=== PATIENT | female | born 1995 | race Caucasian/White ===

== ENCOUNTER 2017-03-15 21:32 | Emergency (ER) | payer MEDICAID ==
[~2017-03-15] VITALS: Ht 157.5 cm; Wt 99.7 kg
[~2017-03-15 21:32] MED LIST: FLO0.4C PO; KETO10TA2 PO; NO HOME MEDS; ONDA4TAB9 PO; OXYC-150 PO; RANI-366 PO
[2017-03-15 22:24] LABS: CLARITY,URINE CLOUDY (Clear); COLOR,URINE YELLOW (Yellow); GLUCOSE, URINE NEGATIVE (Neg); KETONES,URINE TRACE mg/dl (Neg); LEUKOCYTE ESTERASE ,URINE TRACE (Neg); NITRITES, URINE NEGATIVE (Neg); OCCULT BLOOD,URINE LARGE (Neg); PROTEIN,URINE 100 mg/dl (Neg); UROBILINOGEN,URINE 0.2 E.U/dL (0.2-1.0)
[2017-03-15 22:25] LABS: URINE HCG NEGATIVE (NEG)
[2017-03-15 22:29] LABS: UA COLLECTION TYPE CLN CATCH MIDSTREAM
[2017-03-15 22:30] LABS: MUCUS STRANDS MANY /LPF (Neg); RBC,URINE TNTC /HPF (0-2)
[2017-03-15 22:31] LABS: BACTERIA,URINE 2+ /HPF (Neg); SQUAMOUS EPITHELIAL CELL,UR MANY /LPF (FEW)
[2017-03-15] MEDS ORDERED: morphine 2 MG/ML inj. syringe IV ONE (22:35)
[2017-03-15] MEDS ORDERED: cefazolin 1gm/NS 100mL 100 ML IV ONE (22:35)
[2017-03-15] MEDS ORDERED: LORazepam 2 mg/ml vial IV ONE (22:35)
[2017-03-15] MEDS ORDERED: normal saline 1000ML IV soln IVB ONE (22:35)
[2017-03-15] MEDS ORDERED: morphine 4 MG/ML inj SYRINge IV ONE (23:20)
[2017-03-15] MEDS ORDERED: ketorolac tromethamine 15mg/ml inj. IV ONE (23:20)
[2017-03-16 00:25] VITALS: BP 119/78
== END 2017-03-16 00:26 | disposition home or self-care (01) ==
LOC: ER 21:33
DX: N23 Unspecified renal colic (principal); Z56.0 Unemployment, unspecified; Z79.899 Other long term (current) drug therapy
CPT/HCPCS: 81001; 81025; 96365; 96375; 96376; 99284; J0690; J1885; J2060; J2270; J7030

== ENCOUNTER 2018-02-02 11:30 | Emergency (ER) | payer MEDICAID ==
[~2018-02-02] VITALS: Ht 157.5 cm; Wt 102.2 kg
[~2018-02-02 11:30] MED LIST changes: -FLO0.4C PO; -ONDA4TAB9 PO
[2018-02-02 11:55] VITALS: BP 126/73
[2018-02-02] MEDS ORDERED: ACET-3068 PO (13:32)
[2018-02-02] MEDS ORDERED: HYDROcodone/acetaminophen 10/325mg tab PO ONE (13:35)
== END 2018-02-02 14:14 | disposition home or self-care (01) ==
LOC: ER 11:30
DX: S93.492A Sprain of other ligament of left ankle, initial encounter (principal); F17.200 Nicotine dependence, unspecified, uncomplicated; Z98.890 Other specified postprocedural states; Z56.0 Unemployment, unspecified; Z79.899 Other long term (current) drug therapy; X58.XXXA Exposure to other specified factors, initial encounter; Y93.89 Activity, other specified; Y92.89 Other specified places as the place of occurrence of the external cause; Y99.8 Other external cause status
CPT/HCPCS: 73610; 99283

== ENCOUNTER 2018-06-11 19:59 | Emergency (ER) | payer MEDICAID ==
[~2018-06-11] VITALS: Ht 157.5 cm; Wt 108.9 kg
[2018-06-11 20:45] LABS: BASOPHILS % (AUTO) 0.6 % (0-1); EOSINOPHILS # (AUTO) 0.4 X10'3 (0-0.9); EOSINOPHILS % (AUTO) 4.5 % (0-6); HEMATOCRIT 43.6 % (35.0-45.0); HEMOGLOBIN 15.3 g/dl (12.0-16.0); LYMPHOCYTES # (AUTO) 3.2 X10'3 (1.1-4.8); MEAN CORPUSCULAR HEMOGLOBIN 30.9 PG (27.0-31.0); MEAN CORPUSCULAR HGB CONC 35.1 g/dL (33.0-36.5); MEAN CORPUSCULAR VOLUME 88.2 FL (78-98); MEAN PLATELET VOLUME 7.4 FL (7.4-10.4); MONOCYTES # (AUTO) 0.6 X10'3 (0-0.9); MONOCYTES % (AUTO) 6.6 % (2-12); NEUTROPHILS # (AUTO) 4.1 X10'3 (1.8-7.7); NEUTROPHILS % (AUTO) 49.3 % (42-75); PLATELET COUNT 325 X10'3 (140-440); RED BLOOD COUNT 4.94 X10'6 (4.20-5.60); RED CELL DISTRIBUTION WIDTH 13.6 % (11.5-14.5); WHITE BLOOD COUNT 8.3 X10'3 (4.5-11.0)
[2018-06-11 20:52] LABS: URINE HCG NEGATIVE (NEG)
[2018-06-11 20:53] LABS: CLARITY,URINE CLEAR (Clear); COLOR,URINE YELLOW (Yellow); GLUCOSE, URINE NEGATIVE (Neg); KETONES,URINE NEGATIVE (Neg); LEUKOCYTE ESTERASE ,URINE NEGATIVE (Neg); NITRITES, URINE NEGATIVE (Neg); OCCULT BLOOD,URINE NEGATIVE (Neg); PROTEIN,URINE NEGATIVE (Neg); UROBILINOGEN,URINE 0.2 E.U/dL (0.2-1.0)
[2018-06-11 21:00] LABS: ALANINE AMINOTRANSFERASE 31 U/L (12-78); ALBUMIN/GLOBULIN RATIO 1.1 (1.1-1.5); ALKALINE PHOSPHATASE 117 IU/L (20-180); ANION GAP 7 (8-16); ASPARTATE AMINO TRANSFERASE 12 U/L (10-37); BILIRUBIN,TOTAL 0.3 MG/DL (0.1-1.0); BLOOD UREA NITROGEN 9 MG/DL (7-18); BUN/CREATININE RATIO 12.3 (6.6-38.0); CALCIUM 9.8 MG/DL (8.5-10.1); CHLORIDE 105 MMOL/L (99-107); CREATININE 0.73 MG/DL (0.40-0.90); GLUCOSE 89 MG/DL (70-104); SODIUM 139 MMOL/L (135-145); TOTAL PROTEIN 7.6 G/DL (6.4-8.2); eGFR > 90 ML/MIN
[2018-06-11 21:03] LABS: UA COLLECTION TYPE CLN CATCH MIDSTREAM
[2018-06-11 21:15] LABS: INR 0.9 INR
[2018-06-11] MEDS ORDERED: normal saline 1000ML IV soln IVB ONE (21:40)
[2018-06-11] MEDS ORDERED: ondansetron/PF 4mg/2ml inj IV ONE (21:40)
[2018-06-11] MEDS: morphine 4 MG/ML inj SYRINge IV PRN ×2 (21:51→22:25)
[2018-06-11 21:57] LABS: LIPASE 77 U/L (73-393)
[2018-06-11] MEDS ORDERED: famotidine/PF 10 mg/ml inj IV ONE (23:45)
[2018-06-11] MEDS ORDERED: LIDOcaine Viscous 15ml cup PO ONE (23:45)
[2018-06-11] MEDS ORDERED: mag hydrox/Alum hydrox/simeth 30ml oral suspension PO ONE (23:45)
[2018-06-11] MEDS ORDERED: morphine 4 MG/ML inj SYRINge IV ONE (23:45)
[2018-06-11] MEDS ORDERED: metoclopramide 5 mg/ml inj IV ONE (23:45)
[2018-06-12 00:19] VITALS: BP 115/68
== END 2018-06-12 00:22 | disposition home or self-care (01) ==
LOC: ER 20:00
DX: R10.11 Right upper quadrant pain (principal); R11.2 Nausea with vomiting, unspecified; R19.7 Diarrhea, unspecified; Z79.899 Other long term (current) drug therapy; Z56.0 Unemployment, unspecified
CPT/HCPCS: 36415; 74176; 80053; 81003; 81025; 83690; 85025; 85610; 96374; 96375; 96376; 99284; J2270; J2405; J2765; J3490; J7030

== ENCOUNTER 2018-09-22 19:22 | Emergency (ER) | payer MEDICAID ==
[~2018-09-22] VITALS: Ht 157.5 cm; Wt 104.5 kg
[2018-09-22 19:27] VITALS: BP 123/85
[2018-09-22] MEDS ORDERED: AMOX500C2 PO (20:06)
== END 2018-09-22 20:19 | disposition home or self-care (01) ==
LOC: ER 19:23
DX: H66.92 Otitis media, unspecified, left ear (principal); Z79.899 Other long term (current) drug therapy; Z87.442 Personal history of urinary calculi; Z56.0 Unemployment, unspecified
CPT/HCPCS: 99284

== ENCOUNTER 2018-09-27 19:56 | Emergency (ER) | payer MEDICAID ==
[~2018-09-27] VITALS: Ht 157.5 cm; Wt 100.0 kg
[~2018-09-27 19:56] MED LIST changes: +AMOX500C2 PO
[2018-09-27] MEDS ORDERED: HYDROcodone/acetaminophen 5mg/325mg tablet PO ONE (20:50)
[2018-09-27] MEDS ORDERED: CLIN150C8 PO (20:52)
[2018-09-27] MEDS ORDERED: HYDR-3965 PO (20:52)
[2018-09-27 21:04] VITALS: BP 142/69
== END 2018-09-27 21:06 | disposition home or self-care (01) ==
LOC: ER 19:57
DX: K08.89 Other specified disorders of teeth and supporting structures (principal); H66.92 Otitis media, unspecified, left ear; Z87.442 Personal history of urinary calculi; Z56.0 Unemployment, unspecified; Z79.899 Other long term (current) drug therapy
CPT/HCPCS: 64400; 99284

== ENCOUNTER 2018-09-28 00:23 | Emergency (ER) | payer MEDICAID ==
[~2018-09-28] VITALS: Ht 157.5 cm; Wt 104.5 kg
[~2018-09-28 00:23] MED LIST changes: +CLIN150C8 PO; +HYDR-3965 PO
--- NOTE | 2018-09-28 00:41 | NUR ---
dr. [email or web address] updated of Pt's complaint and that she is now in room 6. He remembers her from treating her earlier.
[2018-09-28] MEDS ORDERED: LORazepam 1 MG tablet PO ONE (00:45)
[2018-09-28] MEDS ORDERED: ketorolac trometh inj. 60 MG/2 ML VIAL IM ONE (00:50)
[2018-09-28 01:37] VITALS: BP 131/80
[2018-09-28] MEDS ORDERED: LIDOcaine 1% W/epiNEPHrine 1:100,000 20ml vial ONE (08:00)
== END 2018-09-28 02:13 | disposition home or self-care (01) ==
LOC: ER 00:23
DX: K08.89 Other specified disorders of teeth and supporting structures (principal); Z98.890 Other specified postprocedural states; Z79.2 Long term (current) use of antibiotics; Z79.899 Other long term (current) drug therapy
CPT/HCPCS: 64400; 93005; 96372; 99284; J1885

== ENCOUNTER 2018-11-04 18:47 | Emergency (ER) | payer MEDICAID ==
[~2018-11-04] VITALS: Ht 157.5 cm; Wt 109.0 kg
[~2018-11-04 18:47] MED LIST changes: -AMOX500C2 PO; -HYDR-3965 PO
[2018-11-04 19:39] LABS: CLARITY,URINE CLEAR (Clear); COLOR,URINE YELLOW (Yellow); GLUCOSE, URINE NEGATIVE (Neg); KETONES,URINE NEGATIVE (Neg); LEUKOCYTE ESTERASE ,URINE NEGATIVE (Neg); NITRITES, URINE NEGATIVE (Neg); OCCULT BLOOD,URINE LARGE (Neg); PROTEIN,URINE NEGATIVE (Neg); UROBILINOGEN,URINE 0.2 E.U/dL (0.2-1.0)
[2018-11-04 19:41] LABS: URINE HCG NEGATIVE (NEG)
[2018-11-04 19:42] LABS: UA COLLECTION TYPE CLN CATCH MIDSTREAM
[2018-11-04 19:45] LABS: BACTERIA,URINE NONE SEEN /HPF (Neg); SQUAMOUS EPITHELIAL CELL,UR FEW /LPF (FEW); WBC,URINE NONE SEEN /HPF (0-4)
[2018-11-04] MEDS ORDERED: acetaminophen 325mg tablet PO ONE (20:00)
[2018-11-04] MEDS ORDERED: ketorolac trometh inj. 60 MG/2 ML VIAL IM ONE (20:00)
[2018-11-04] MEDS ORDERED: dicyclomine 10mg/ml 2ml ampule IM ONE (20:00)
[2018-11-04] MEDS ORDERED: DICY10CA88 PO (20:05)
[2018-11-04 20:20] VITALS: BP 136/72
== END 2018-11-04 20:30 | disposition home or self-care (01) ==
LOC: ER 18:47
DX: R10.30 Lower abdominal pain, unspecified (principal); Z59.0 Homelessness; Z56.0 Unemployment, unspecified; Z79.899 Other long term (current) drug therapy
CPT/HCPCS: 81001; 81025; 96372; 99283; J0500; J1885

== ENCOUNTER 2018-11-28 21:46 | Emergency (ER) | payer MEDICAID ==
[~2018-11-28] VITALS: Ht 157.5 cm; Wt 109.1 kg
[~2018-11-28 21:46] MED LIST changes: +DICY10CA88 PO
[2018-11-28 22:14] LABS: BASOPHILS % (AUTO) 0.4 % (0-1); EOSINOPHILS # (AUTO) 0.2 X10'3 (0-0.9); EOSINOPHILS % (AUTO) 2.8 % (0-6); HEMATOCRIT 46.3 % (35.0-45.0); LYMPHOCYTES # (AUTO) 1.7 X10'3 (1.1-4.8); LYMPHOCYTES % (AUTO) 20.9 % (21-51); MEAN CORPUSCULAR HEMOGLOBIN 31.1 PG (27.0-31.0); MEAN CORPUSCULAR HGB CONC 34.6 g/dL (33.0-36.5); MEAN CORPUSCULAR VOLUME 89.8 FL (78-98); MEAN PLATELET VOLUME 6.8 FL (7.4-10.4); MONOCYTES # (AUTO) 0.5 X10'3 (0-0.9); MONOCYTES % (AUTO) 6.2 % (2-12); NEUTROPHILS # (AUTO) 5.6 X10'3 (1.8-7.7); NEUTROPHILS % (AUTO) 69.7 % (42-75); PLATELET COUNT 360 X10'3 (140-440); RED BLOOD COUNT 5.16 X10'6 (4.20-5.60)
[2018-11-28 22:29] LABS: ALANINE AMINOTRANSFERASE 41 U/L (12-78); ALBUMIN 4.1 G/DL (3.4-5.0); ALBUMIN/GLOBULIN RATIO 0.9 (1.1-1.5); ALKALINE PHOSPHATASE 121 IU/L (46-116); AMYLASE 27 U/L (25-115); ANION GAP 10 (8-16); ASPARTATE AMINO TRANSFERASE 18 U/L (10-37); BILIRUBIN,TOTAL 0.5 MG/DL (0.1-1.0); BLOOD UREA NITROGEN 8 MG/DL (7-18); BUN/CREATININE RATIO 10.5 (6.6-38.0); CHLORIDE 105 MMOL/L (99-107); CREATININE 0.76 MG/DL (0.40-0.90); GLUCOSE 106 MG/DL (70-104); LIPASE 59 U/L (73-393); POTASSIUM 3.5 MMOL/L (3.5-5.1); SODIUM 141 MMOL/L (135-145); TOTAL CARBON DIOXIDE 25.7 MMOL/L (24-32); TOTAL PROTEIN 8.9 G/DL (6.4-8.2); eGFR > 90 ML/MIN
--- NOTE | 2018-11-28 22:32 | NUR ---
ATTEMPTED TO OBTAIN UA SAMPLE. PT STATES "I JUST TRIED AND TOLD THEM I HAVE NOTHING IN THERE." WILL CONTINUE TO ATTEMPT TO OBTAIN UA.
[2018-11-28] MEDS ORDERED: normal saline 1000ml 1,000 ML IVB ONE (23:06)
--- NOTE | 2018-11-28 23:09 | NUR ---
SHE STATES SHE STILL HAS NO URINE, LITER OF NS INFUSED
[2018-11-28] MEDS ORDERED: normal saline 1000ML IV soln IVB ONE (23:25)
[2018-11-28] MEDS ORDERED: diphenhydrAMINE 50 mg/ml inj IV ONE (23:25)
[2018-11-28] MEDS ORDERED: metoclopramide 5 mg/ml inj IV ONE (23:25)
[2018-11-28] MEDS ORDERED: glycopyrrolate 0.2mg/ml inj IV ONE (23:30)
[2018-11-28] MEDS ORDERED: ketorolac trometh. 30mg/ml inj. IV ONE (23:30)
[2018-11-28 23:43] LABS: URINE HCG NEGATIVE (NEG)
[2018-11-28 23:46] LABS: CLARITY,URINE CLEAR (Clear); COLOR,URINE YELLOW (Yellow); GLUCOSE, URINE NEGATIVE (Neg); KETONES,URINE NEGATIVE (Neg); LEUKOCYTE ESTERASE ,URINE NEGATIVE (Neg); NITRITES, URINE NEGATIVE (Neg); OCCULT BLOOD,URINE SMALL (Neg); PH,URINE 5.5 (4.8-8.0); PROTEIN,URINE TRACE mg/dl (Neg); UROBILINOGEN,URINE 0.2 E.U/dL (0.2-1.0)
[2018-11-28 23:53] LABS: UA COLLECTION TYPE CLN CATCH MIDSTREAM
[2018-11-29 00:12] LABS: BACTERIA,URINE 2+ /HPF (Neg); MUCUS STRANDS MODERATE /LPF (Neg); RBC,URINE 0-2 /HPF (0-2); SQUAMOUS EPITHELIAL CELL,UR MANY /LPF (FEW); WBC,URINE 0-4 /HPF (0-4)
[2018-11-29] MEDS ORDERED: ONDA4TAB12 PO (00:38)
[2018-11-29] MEDS ORDERED: DICY10CA88 PO (00:38)
[2018-11-29 00:47] VITALS: BP 134/60
== END 2018-11-29 00:50 | disposition home or self-care (01) ==
LOC: ER 21:46
DX: R10.13 Epigastric pain (principal); R10.11 Right upper quadrant pain; R11.2 Nausea with vomiting, unspecified; R19.7 Diarrhea, unspecified; F17.210 Nicotine dependence, cigarettes, uncomplicated; Z87.442 Personal history of urinary calculi; Z56.0 Unemployment, unspecified; Z79.2 Long term (current) use of antibiotics; Z79.899 Other long term (current) drug therapy
CPT/HCPCS: 36415; 80053; 81001; 81025; 82150; 83690; 85025; 85610; 96374; 96375; 99283; J1200; J1885; J2765; J7030; J3490

== ENCOUNTER 2019-02-17 18:12 | Emergency (ER) | payer MEDICAID ==
[~2019-02-17] VITALS: Ht 157.5 cm; Wt 109.0 kg
[~2019-02-17 18:12] MED LIST changes: +ONDA4TAB12 PO
[2019-02-17 18:51] LABS: URINE HCG NEGATIVE (NEG)
[2019-02-17 18:56] LABS: CLARITY,URINE TURBID (Clear); COLOR,URINE YELLOW (Yellow); GLUCOSE, URINE NEGATIVE (Neg); KETONES,URINE NEGATIVE (Neg); LEUKOCYTE ESTERASE ,URINE NEGATIVE (Neg); NITRITES, URINE NEGATIVE (Neg); OCCULT BLOOD,URINE MODERATE (Neg); PROTEIN,URINE NEGATIVE (Neg)
[2019-02-17 19:00] LABS: UA COLLECTION TYPE CLN CATCH MIDSTREAM
[2019-02-17 19:01] LABS: BASOPHILS # (AUTO) 0.1 X10'3 (0-0.2); BASOPHILS % (AUTO) 0.9 % (0-1); EOSINOPHILS # (AUTO) 0.6 X10'3 (0-0.9); EOSINOPHILS % (AUTO) 6.3 % (0-6); HEMATOCRIT 41.4 % (35.0-45.0); HEMOGLOBIN 14.3 g/dl (12.0-16.0); LYMPHOCYTES # (AUTO) 2.7 X10'3 (1.1-4.8); LYMPHOCYTES % (AUTO) 28.8 % (21-51); MEAN CORPUSCULAR HEMOGLOBIN 30.5 PG (27.0-31.0); MEAN CORPUSCULAR HGB CONC 34.5 g/dL (33.0-36.5); MEAN CORPUSCULAR VOLUME 88.3 FL (78-98); MEAN PLATELET VOLUME 7.2 FL (7.4-10.4); MONOCYTES # (AUTO) 0.5 X10'3 (0-0.9); MONOCYTES % (AUTO) 5.6 % (2-12); NEUTROPHILS # (AUTO) 5.5 X10'3 (1.8-7.7); NEUTROPHILS % (AUTO) 58.4 % (42-75); PLATELET COUNT 445 X10'3 (140-440); RED BLOOD COUNT 4.69 X10'6 (4.20-5.60); RED CELL DISTRIBUTION WIDTH 13.2 % (11.5-14.5); WHITE BLOOD COUNT 9.4 X10'3 (4.5-11.0)
[2019-02-17 19:02] LABS: AMORPHOUS PHOSPHATES 4+; MUCUS STRANDS MANY /LPF (Neg); SQUAMOUS EPITHELIAL CELL,UR MANY /LPF (FEW)
[2019-02-17 19:04] LABS: RBC,URINE 0-2 /HPF (0-2); WBC,URINE 0-4 /HPF (0-4)
[2019-02-17 19:05] LABS: BACTERIA,URINE 1+ /HPF (Neg)
[2019-02-17 19:16] LABS: ALANINE AMINOTRANSFERASE 39 U/L (12-78); ALBUMIN 3.6 G/DL (3.4-5.0); ALBUMIN/GLOBULIN RATIO 0.9 (1.1-1.5); ALKALINE PHOSPHATASE 129 IU/L (46-116); ANION GAP 10 (8-16); ASPARTATE AMINO TRANSFERASE 19 U/L (10-37); BILIRUBIN,TOTAL 0.2 MG/DL (0.1-1.0); BLOOD UREA NITROGEN 7 MG/DL (7-18); CALCIUM 8.9 MG/DL (8.5-10.1); CHLORIDE 108 MMOL/L (99-107); GLUCOSE 85 MG/DL (70-104); LIPASE 86 U/L (73-393); POTASSIUM 3.5 MMOL/L (3.5-5.1); SODIUM 144 MMOL/L (135-145); TOTAL CARBON DIOXIDE 26.1 MMOL/L (24-32); TOTAL PROTEIN 7.4 G/DL (6.4-8.2); eGFR > 90 ML/MIN
[2019-02-17 19:30] VITALS: BP 126/78
== END 2019-02-17 19:35 | disposition home or self-care (01) ==
LOC: ER 18:13
DX: R10.32 Left lower quadrant pain (principal); Z87.442 Personal history of urinary calculi; Z56.0 Unemployment, unspecified; Z79.899 Other long term (current) drug therapy
CPT/HCPCS: 36415; 80053; 81001; 81025; 83690; 85025; 99283

== ENCOUNTER 2019-03-28 20:22 | Emergency (ER) | payer MEDICAID ==
[~2019-03-28] VITALS: Ht 157.5 cm; Wt 105.0 kg
[2019-03-28 20:35] VITALS: BP 144/78
[2019-03-28 21:11] LABS: CLARITY,URINE SLIGHTLY CLOUDY (Clear); COLOR,URINE YELLOW (Yellow); GLUCOSE, URINE NEGATIVE (Neg); KETONES,URINE NEGATIVE (Neg); LEUKOCYTE ESTERASE ,URINE NEGATIVE (Neg); NITRITES, URINE NEGATIVE (Neg); OCCULT BLOOD,URINE NEGATIVE (Neg); PROTEIN,URINE NEGATIVE (Neg); UROBILINOGEN,URINE 0.2 E.U/dL (0.2-1.0)
[2019-03-28 21:11] LABS: BASOPHILS # (AUTO) 0.1 X10'3 (0-0.2); BASOPHILS % (AUTO) 0.5 % (0-1); EOSINOPHILS # (AUTO) 0.5 X10'3 (0-0.9); EOSINOPHILS % (AUTO) 4.5 % (0-6); HEMOGLOBIN 14.2 g/dl (12.0-16.0); LYMPHOCYTES # (AUTO) 3.3 X10'3 (1.1-4.8); LYMPHOCYTES % (AUTO) 28.7 % (21-51); MEAN CORPUSCULAR HEMOGLOBIN 30.2 PG (27.0-31.0); MEAN CORPUSCULAR HGB CONC 34.7 g/dL (33.0-36.5); MEAN PLATELET VOLUME 7.4 FL (7.4-10.4); MONOCYTES # (AUTO) 0.7 X10'3 (0-0.9); MONOCYTES % (AUTO) 6.3 % (2-12); NEUTROPHILS # (AUTO) 6.8 X10'3 (1.8-7.7); PLATELET COUNT 362 X10'3 (140-440); RED BLOOD COUNT 4.71 X10'6 (4.20-5.60); RED CELL DISTRIBUTION WIDTH 13.3 % (11.5-14.5); WHITE BLOOD COUNT 11.4 X10'3 (4.5-11.0)
[2019-03-28 21:12] LABS: UA COLLECTION TYPE CLN CATCH MIDSTREAM
[2019-03-28 21:13] LABS: ALANINE AMINOTRANSFERASE 33 U/L (12-78); ALBUMIN 3.9 G/DL (3.4-5.0); ALBUMIN/GLOBULIN RATIO 1.1 (1.1-1.5); ALKALINE PHOSPHATASE 110 IU/L (46-116); AMYLASE 34 U/L (25-115); ANION GAP 13 (8-16); ASPARTATE AMINO TRANSFERASE 15 U/L (10-37); BILIRUBIN,TOTAL 0.2 MG/DL (0.1-1.0); BLOOD UREA NITROGEN 5 MG/DL (7-18); BUN/CREATININE RATIO 7.7 (6.6-38.0); CALCIUM 9.6 MG/DL (8.5-10.1); CHLORIDE 106 MMOL/L (99-107); CREATININE 0.65 MG/DL (0.40-0.90); GLUCOSE 89 MG/DL (70-104); LIPASE 86 U/L (73-393); POTASSIUM 3.3 MMOL/L (3.5-5.1); SODIUM 145 MMOL/L (135-145); TOTAL CARBON DIOXIDE 25.7 MMOL/L (24-32); TOTAL PROTEIN 7.5 G/DL (6.4-8.2); eGFR > 90 ML/MIN
[2019-03-28 21:16] LABS: URINE HCG NEGATIVE (NEG)
[2019-03-28 21:18] LABS: BACTERIA,URINE FEW /HPF (Neg); MUCUS STRANDS MANY /LPF (Neg); RBC,URINE NONE SEEN /HPF (0-2); SQUAMOUS EPITHELIAL CELL,UR MANY /LPF (FEW); WBC,URINE 0-4 /HPF (0-4)
[2019-03-28] MEDS ORDERED: HYOS0.1285 PO (21:37)
== END 2019-03-28 21:45 | disposition home or self-care (01) ==
LOC: ER 20:22
DX: R10.10 Upper abdominal pain, unspecified (principal); R19.7 Diarrhea, unspecified; E66.9 Obesity, unspecified; F17.200 Nicotine dependence, unspecified, uncomplicated; Z56.0 Unemployment, unspecified; Z87.442 Personal history of urinary calculi; Z79.899 Other long term (current) drug therapy
CPT/HCPCS: 36415; 80053; 81001; 81025; 82150; 83690; 85025; 99283

== ENCOUNTER 2022-05-03 20:00 | Emergency (ER) | payer MEDICAID ==
[~2022-05-03] VITALS: Ht 157.5 cm; Wt 101.2 kg
[~2022-05-03 20:00] MED LIST changes: +HYOS0.1285 PO
[2022-05-03 20:12] VITALS: BP 125/75
== END 2022-05-04 01:04 | disposition left against medical advice (07) ==
LOC: ER 20:01
DX: R21 Rash and other nonspecific skin eruption (principal); Z53.21 Procedure and treatment not carried out due to patient leaving prior to being seen by health care provider
CPT/HCPCS: 99281

== ENCOUNTER 2022-06-11 19:45 | Emergency (ER) | payer MEDICAID ==
[~2022-06-11] VITALS: Ht 157.5 cm; Wt 97.7 kg
[2022-06-11 19:58] VITALS: BP 137/80
[2022-06-11] MEDS ORDERED: HYDROcodone/acetaminophen 10/325mg tab PO ONE (20:45)
[2022-06-11] MEDS ORDERED: HYDR-3973 PO (21:05)
== END 2022-06-11 21:29 | disposition home or self-care (01) ==
LOC: ER 19:45
DX: S93.492A Sprain of other ligament of left ankle, initial encounter (principal); Z87.442 Personal history of urinary calculi; Z72.89 Other problems related to lifestyle; Z56.0 Unemployment, unspecified; X58.XXXA Exposure to other specified factors, initial encounter; Y93.89 Activity, other specified; Y92.89 Other specified places as the place of occurrence of the external cause; Y99.8 Other external cause status
CPT/HCPCS: 73610; 99283; A6449

== ENCOUNTER 2022-10-05 04:51 | Emergency (ER) | payer MEDICAID ==
[~2022-10-05] VITALS: Ht 157.5 cm; Wt 104.5 kg
[~2022-10-05 04:51] MED LIST changes: +CLIN-214 PO; -CLIN150C8 PO
[2022-10-05 04:57] VITALS: BP 120/89; PULSE 86; RESP 16; TEMP 98.2; O2SAT 97
[2022-10-05] MEDS ORDERED: AMOX-117 PO (05:19)
[2022-10-05] MEDS ORDERED: acetaminophen 325mg tablet PO ONE ×2 (05:20)
[2022-10-05] MEDS ORDERED: HYDR-3965 PO (05:31)
== END 2022-10-05 05:44 | disposition home or self-care (01) ==
LOC: ER 04:52
DX: K08.89 Other specified disorders of teeth and supporting structures (principal); Z79.2 Long term (current) use of antibiotics; Z79.899 Other long term (current) drug therapy
CPT/HCPCS: 99283